=== PATIENT | female | born 1995 | race Caucasian/White ===

== ENCOUNTER 2019-09-27 22:10 | Inpatient (IN) | payer OTHER ==
[~2019-09-27] VITALS: Ht 157.5 cm; Wt 51.3 kg
[2019-09-27] MEDS ORDERED: CARBOPROST 250 MCG/ML AMP IM PRN (23:15)
[2019-09-27] MEDS ORDERED: fentaNYL 0.05 MG/ML VIAL IVP PRN (23:15)
[2019-09-27] MEDS ORDERED: METHYLERGONOVINE 0.2 MG/ML AMP IM PRN (23:15)
[2019-09-27] MEDS ORDERED: LACTATED RINGERS 500 ML IV SCH (23:15)
[2019-09-27] MEDS ORDERED: ALBUTEROL 0.083% 2.5 MG/3 ML NEBU INH PRN (23:40)
[2019-09-27] MEDS ORDERED: ALBU0.0912 IH (23:40)
[2019-09-28 00:07] LABS: BASOPHILS # (AUTO) 0.1 K/uL (0.00-0.22); BASOPHILS % (AUTO) 0.4 % (0.0-2.0); EOSINOPHILS # (AUTO) 0.1 K/uL (0-0.4); EOSINOPHILS % (AUTO) 0.7 % (0.0-4.0); HEMATOCRIT 34.8 % (36-48); HEMOGLOBIN 11.7 g/dL (12.0-16.0); LYMPHOCYTES # (AUTO) 1.6 K/uL (2.5-16.5); LYMPHOCYTES % (AUTO) 12.4 % (20.5-51.1); MEAN CORPUSCULAR HEMOGLOBIN 28 pg (27-31); MEAN CORPUSCULAR HGB CONC 34 g/dL (33-37); MEAN CORPUSCULAR VOLUME 84.7 fL (80-94); MONOCYTES # (AUTO) 0.7 K/uL (0.8-1.0); MONOCYTES % (AUTO) 5.3 % (1.7-9.3); NEUTROPHILS # (AUTO) 10.2 K/uL (1.8-7.7); NEUTROPHILS % (AUTO) 81.2 % (42.2-75.2); PLATELET COUNT (AUTO) 333 K/uL (140-450); RED BLOOD CELL COUNT(AUTO) 4.11 MIL/uL (4.20-5.40); RED CELL DISTRIBUTION WIDTH 13.9 % (11.6-13.7); WHITE BLOOD COUNT (AUTO) 12.6 K/uL (4.8-10.8)
[2019-09-28 00:09] LABS: APPEARANCE,URINE CLEAR (CLEAR); BILIRUBIN,URINE NEGATIVE (NEGATIVE); BLOOD, URINE NEGATIVE (NEGATIVE); COLOR,URINE YELLOW (YELLOW); LEUKOCYTE ESTERASE ,URINE TRACE (NEGATIVE); NITRITE, URINE NEGATIVE (NEGATIVE); PH,URINE 6.5 (5.0-9.0); UGLUCOSE NEGATIVE (NEGATIVE)
[2019-09-28 00:23] LABS: ALBUMIN 2.7 g/dL (3.4-5.0); ANION GAP 14.2 (8-16); CARBON DIOXIDE 22.7 mmol/L (21-32); CREATININE 0.6 mg/dL (0.6-1.3); POTASSIUM 3.9 mmol/L (3.5-5.1); TOTAL BILIRUBIN 0.3 mg/dL (0.0-1.0)
[2019-09-28] MEDS: LACTATED RINGERS 1,000 ML IV SCH ×3 (00:40→13:41)
[2019-09-28 01:58] LABS: RBC,URINE 0-5 /HPF (0-5); WBC,URINE 0-5 /HPF (0-5)
[2019-09-28] MEDS ORDERED: fentaNYL 0.05 MG/ML VIAL ONE (02:24)
[2019-09-28] MEDS ORDERED: ROPIVACAINE 0.2%/NS PREMIX 200 ML EPI SCH (02:35)
[2019-09-28] MEDS ORDERED: fentaNYL 0.05 MG/ML VIAL IVP SCH (02:35)
[2019-09-28] MEDS ORDERED: ROPIVACAINE 0.2%/NS PREMIX 200 ML EPI ONE (02:37)
[2019-09-28 05:17] VITALS: BP 100/58
[2019-09-28] MEDS ORDERED: OXYTOCIN 20 UNITS in LACTATED RINGERS 1,000 ML IV SCH (05:40)
--- NOTE | 2019-09-28 08:57 | NUR ---
PATIENT HAS BEEN SCREENED AND CATEGORIZED LOW NUTRITION RISK. PATIENT WILL BE SEEN WITHIN 7 DAYS OF ADMISSION. 10/04/[address]
[2019-09-28] MEDS ORDERED: OXYTOCIN 20 UNITS/LR PREMIX 1,000 ML IV ONE (09:05)
[2019-09-28] MEDS ORDERED: METHYLERGONOVINE 0.2 MG TAB PO PRN (19:10)
[2019-09-28] MEDS ORDERED: METHYLERGONOVINE 0.2 MG/ML AMP IM PRN (19:10)
[2019-09-28] MEDS ORDERED: IBUPROFEN 600 MG TAB PO PRN ×2 (19:10)
[2019-09-28] MEDS ORDERED: SIMETHICONE 80 MG TAB.CHEW PO PRN (19:10)
[2019-09-28] MEDS ORDERED: DOCUSATE SODIUM 100 MG GELCAP PO PRN (19:10)
[2019-09-28] MEDS ORDERED: OXYTOCIN 10 UNITS/ML VIAL IM PRN (19:10)
[2019-09-28] MEDS ORDERED: BISACODYL 5 MG TABEC PO PRN (19:10)
[2019-09-28] MEDS ORDERED: MEASLES, MUMPS, AND RUBELLA 1 VIAL SQVAC PRN (19:10)
[2019-09-28] MEDS ORDERED: BENZOCAINE/MENTHOL 20%-0.5% 60 GM CAN TP PRN (19:10)
[2019-09-28] MEDS: IBUPROFEN 800 MG TAB PO PRN (21:39)
[2019-09-29 07:22] LABS: HEMATOCRIT 34.7 % (36-48); HEMOGLOBIN 11.4 g/dL (12.0-16.0)
[2019-09-29] MEDS: IBUPROFEN 800 MG TAB PO PRN (08:24)
== END 2019-09-30 17:50 | disposition home or self-care (01) | DRG 560 ==
LOC: MLD 22:10 → OBSVTOIN 23:12 → MFCC 09-28 20:30
PROVIDERS: ADMIT Obstetrics & Gynecology; ATTEND Obstetrics & Gynecology
PROC: 10E0XZZ Delivery of Products of Conception, External Approach (ICD-10-PCS; principal; 2019-09-28)
PROC: 0HQ9XZZ Repair Perineum Skin, External Approach (ICD-10-PCS; 2019-09-28)
PROC: 3E0R3BZ Introduction of Anesthetic Agent into Spinal Canal, Percutaneous Approach (ICD-10-PCS; 2019-09-28)
PROC: 00HU33Z Insertion of Infusion Device into Spinal Canal, Percutaneous Approach (ICD-10-PCS; 2019-09-28)
DX: O70.0 First degree perineal laceration during delivery (principal); D62 Acute posthemorrhagic anemia; O77.0 Labor and delivery complicated by meconium in amniotic fluid; Z37.0 Single live birth; Z3A.39 39 weeks gestation of pregnancy; O99.02 Anemia complicating childbirth
CPT/HCPCS: 36415; 51702; 59409; 80053; 81001; 85018; 85025; 86592; 86886; 86900; 86901; G0378; J2590; J2795; J3010; J7120

== ENCOUNTER 2021-10-01 03:30 | Inpatient (IN) | payer OTHER ==
[~2021-10-01] VITALS: Ht 157.5 cm; Wt 68.0 kg
[~2021-10-01 03:30] MED LIST: ALBU0.0912 IH
[2021-10-01] MEDS ORDERED: MORPHINE SULFATE 5 MG/ML VIAL IVP PRN (03:55)
[2021-10-01] MEDS ORDERED: OXYTOCIN 20 UNITS in LACTATED RINGERS 1,000 ML IV SCH (03:55)
[2021-10-01] MEDS ORDERED: ONDANSETRON 4 MG/2 ML VIAL IVP PRN (03:55)
[2021-10-01] MEDS ORDERED: LACTATED RINGERS 1,000 ML IV SCH (03:55)
[2021-10-01] MEDS ORDERED: AMPICILLIN 2,000 MG in NACL 0.9% MINI-BAG PLUS 100 ML IV SCH (04:00)
[2021-10-01] MEDS ORDERED: OXYTOCIN 10 UNITS/ML VIAL ONE (04:17)
[2021-10-01] MEDS ORDERED: OXYTOCIN 10 UNITS/ML VIAL IM SCH (04:20)
[2021-10-01 04:26] LABS: BASOPHILS # (AUTO) 0.1 K/uL (0.00-0.22); BASOPHILS % (AUTO) 0.3 % (0.0-2.0); EOSINOPHILS # (AUTO) 0.1 K/uL (0-0.4); EOSINOPHILS % (AUTO) 0.4 % (0.0-4.0); HEMATOCRIT 33.1 % (36-48); HEMOGLOBIN 10.8 g/dL (12.0-16.0); LYMPHOCYTES # (AUTO) 1.6 K/uL (2.5-16.5); LYMPHOCYTES % (AUTO) 8.4 % (20.5-51.1); MEAN CORPUSCULAR HEMOGLOBIN 25 pg (27-31); MEAN CORPUSCULAR HGB CONC 33 g/dL (33-37); MEAN CORPUSCULAR VOLUME 76.7 fL (80-94); MONOCYTES # (AUTO) 0.8 K/uL (0.8-1.0); MONOCYTES % (AUTO) 4.1 % (1.7-9.3); NEUTROPHILS # (AUTO) 16.8 K/uL (1.8-7.7); NEUTROPHILS % (AUTO) 86.8 % (42.2-75.2); PLATELET COUNT (AUTO) 342 K/uL (140-450); RED BLOOD CELL COUNT(AUTO) 4.32 MIL/uL (4.20-5.40); RED CELL DISTRIBUTION WIDTH 16.2 % (11.6-13.7); WHITE BLOOD COUNT (AUTO) 19.3 K/uL (4.8-10.8)
[2021-10-01] MEDS ORDERED: BENZOCAINE/MENTHOL 20%-0.5% 60 GM CAN TP PRN (04:55)
[2021-10-01] MEDS ORDERED: METHYLERGONOVINE 0.2 MG TAB PO PRN (04:55)
[2021-10-01] MEDS ORDERED: DOCUSATE SODIUM 100 MG GELCAP PO PRN (04:55)
[2021-10-01] MEDS ORDERED: OXYTOCIN 10 UNITS/ML VIAL IM PRN (04:55)
[2021-10-01] MEDS ORDERED: SIMETHICONE 80 MG TAB.CHEW PO PRN (04:55)
[2021-10-01] MEDS ORDERED: IBUPROFEN 800 MG TAB PO PRN (04:55)
[2021-10-01] MEDS ORDERED: IBUPROFEN 600 MG TAB PO PRN (04:55)
[2021-10-01] MEDS ORDERED: MEASLES, MUMPS, AND RUBELLA 1 VIAL SQVAC ONE (04:55)
[2021-10-01] MEDS ORDERED: bisacodyL 5 MG TABEC PO PRN (04:55)
[2021-10-01] MEDS ORDERED: METHYLERGONOVINE 0.2 MG/ML AMP IM PRN (04:55)
[2021-10-01 05:05] LABS: BARBITURATE, URINE NEGATIVE ng/ml (NEG <=200); BENZODIAZEPINE, URINE NEGATIVE ng/mL (NEG <=200); CANNABINOID, URINE POSITIVE ng/mL (NEG <=50); COCAINE, URINE NEGATIVE ng/mL (NEG <=300); OPIATE, URINE NEGATIVE ng/mL (NEG <=2000); PHENCYCLIDINE SCREEN,URINE NEGATIVE ng/mL (NEG <=25)
[2021-10-01 05:24] VITALS: BP 101/57
[2021-10-01 05:28] LABS: ALBUMIN 2.7 g/dL (3.4-5.0); ANION GAP 16.1 (8-16); CARBON DIOXIDE 20.4 mmol/L (21-32); CREATININE 0.6 mg/dL (0.6-1.3); POTASSIUM 3.5 mmol/L (3.5-5.1); TOTAL BILIRUBIN 0.4 mg/dL (0.0-1.0)
[2021-10-01 05:36] LABS: APPEARANCE,URINE CLEAR (CLEAR); BILIRUBIN,URINE 1+ (NEGATIVE); BLOOD, URINE 3+ (NEGATIVE); COLOR,URINE YELLOW (YELLOW); LEUKOCYTE ESTERASE ,URINE 2+ (NEGATIVE); NITRITE, URINE NEGATIVE (NEGATIVE); UGLUCOSE NEGATIVE (NEGATIVE)
[2021-10-01 05:57] LABS: RBC,URINE 0-5 /HPF (0-5); WBC,URINE 20-60 /HPF (0-5)
[2021-10-01] MEDS ORDERED: METHYLERGONOVINE 0.2 MG/ML AMP IM ONE (06:10)
[2021-10-01] MEDS ORDERED: OXYTOCIN 20 UNITS/LR PREMIX 1,000 ML IV ONE (07:23)
[2021-10-01] MEDS ORDERED: AMPICILLIN 1,000 MG in NACL 0.9% MINI-BAG PLUS 50 ML IV SCH (08:00)
[2021-10-01] MEDS ORDERED: MISOPROSTOL 100 MCG TAB PO SCH ×2 (08:50→09:10)
[2021-10-01] MEDS: MISOPROSTOL 100 MCG TAB ONE ×2 (08:59→09:01)
--- NOTE | 2021-10-01 11:21 | NUR ---
PATIENT HAS BEEN SCREENED AND CATEGORIZED LOW NUTRITION RISK. PATIENT WILL BE SEEN WITHIN 7 DAYS OF ADMISSION. 10/08/21 [address]
[2021-10-01 19:15] LABS: BASOPHILS % (AUTO) 0.3 % (0.0-2.0); EOSINOPHILS # (AUTO) 0.1 K/uL (0-0.4); EOSINOPHILS % (AUTO) 0.4 % (0.0-4.0); HEMATOCRIT 20.8 % (36-48); LYMPHOCYTES % (AUTO) 15.3 % (20.5-51.1); MEAN CORPUSCULAR HEMOGLOBIN 25 pg (27-31); MEAN CORPUSCULAR HGB CONC 33 g/dL (33-37); MEAN CORPUSCULAR VOLUME 75.8 fL (80-94); MONOCYTES # (AUTO) 0.7 K/uL (0.8-1.0); MONOCYTES % (AUTO) 5.3 % (1.7-9.3); NEUTROPHILS # (AUTO) 10.5 K/uL (1.8-7.7); NEUTROPHILS % (AUTO) 78.7 % (42.2-75.2); PLATELET COUNT (AUTO) 296 K/uL (140-450); RED BLOOD CELL COUNT(AUTO) 2.75 MIL/uL (4.20-5.40); RED CELL DISTRIBUTION WIDTH 16.2 % (11.6-13.7); WHITE BLOOD COUNT (AUTO) 13.3 K/uL (4.8-10.8)
[2021-10-01 19:18] LABS: HEMOGLOBIN 6.8 g/dL (12.0-16.0)
[2021-10-02] MEDS ORDERED: IRON SUCROSE COMPLEX 100 MG/5 ML VIAL IVP SCH (02:20)
[2021-10-02 08:08] LABS: HEPATITIS B SURFACE ANTIGEN Negative (Negative)
[2021-10-02 17:02] LABS: BASOPHILS # (AUTO) 0.1 K/uL (0.00-0.22); BASOPHILS % (AUTO) 0.6 % (0.0-2.0); EOSINOPHILS # (AUTO) 0.2 K/uL (0-0.4); EOSINOPHILS % (AUTO) 1.9 % (0.0-4.0); HEMATOCRIT 20.1 % (36-48); LYMPHOCYTES # (AUTO) 1.7 K/uL (2.5-16.5); LYMPHOCYTES % (AUTO) 19.6 % (20.5-51.1); MEAN CORPUSCULAR HEMOGLOBIN 26 pg (27-31); MEAN CORPUSCULAR HGB CONC 33 g/dL (33-37); MEAN CORPUSCULAR VOLUME 76.9 fL (80-94); MONOCYTES # (AUTO) 0.4 K/uL (0.8-1.0); MONOCYTES % (AUTO) 4.6 % (1.7-9.3); NEUTROPHILS # (AUTO) 6.4 K/uL (1.8-7.7); NEUTROPHILS % (AUTO) 73.3 % (42.2-75.2); PLATELET COUNT (AUTO) 337 K/uL (140-450); RED BLOOD CELL COUNT(AUTO) 2.61 MIL/uL (4.20-5.40); RED CELL DISTRIBUTION WIDTH 15.9 % (11.6-13.7); WHITE BLOOD COUNT (AUTO) 8.7 K/uL (4.8-10.8)
[2021-10-02 17:09] LABS: HEMOGLOBIN 6.7 g/dL (12.0-16.0)
== END 2021-10-02 20:03 | disposition home or self-care (01) | DRG 560 ==
LOC: MLD 03:30 → OBSVTOIN 03:48 → MFCC 10:25
PROVIDERS: ADMIT Obstetrics & Gynecology; ATTEND Obstetrics & Gynecology
PROC: 10E0XZZ Delivery of Products of Conception, External Approach (ICD-10-PCS; principal; 2021-10-01)
PROC: 10907ZC Drainage of Amniotic Fluid, Therapeutic from Products of Conception, Via Natural or Artificial Opening (ICD-10-PCS; 2021-10-01)
DX: O77.0 Labor and delivery complicated by meconium in amniotic fluid (principal); Z37.0 Single live birth; O72.1 Other immediate postpartum hemorrhage; O62.3 Precipitate labor; Z3A.40 40 weeks gestation of pregnancy; O90.81 Anemia of the puerperium; Z20.822 Contact with and (suspected) exposure to COVID-19
CPT/HCPCS: 36415; 59409; 80053; 80305; 81001; 85025; 86592; 86762; 86886; 86900; 86901; 87086; 87186; 87340; 87653-90; J1756; J2210; J2590; J7030; J7120